=== PATIENT | male | born 1965 | race Caucasian/White ===

== ENCOUNTER 2019-03-10 21:04 | Emergency (ER) | payer BC, OTHER ==
[~2019-03-10] VITALS: Ht 188 cm; Wt 117.9 kg
[2019-03-10] MEDS ORDERED: PRINIVIL10 MG PO (21:44)
[2019-03-10] MEDS ORDERED: MELATONIN10 M3 PO (21:45)
[2019-03-10] MEDS ORDERED: NEXIUM20 MG PO (21:46)
[2019-03-10] MEDS ORDERED: ACETAMINOPHN-12.5 ML PO (21:48)
[2019-03-10] MEDS ORDERED: ASA81BEC PO (21:48)
[2019-03-10] MEDS ORDERED: METFORMIN HCL500 M3 PO (21:49)
[2019-03-10] MEDS ORDERED: SYNTHROID50 MCG PO (21:50)
[2019-03-10] MEDS ORDERED: ZOCOR 20 MG TAB20 M1 PO (21:50)
[2019-03-10 21:51] LABS: ABSOLUTE NEUTROPHILS 8.1 thou/uL (1.4-8.2); BASOPHILS 1.3 % (0.0-2.0); EOSINOPHILS 2.8 % (0.0-3.0); HEMATOCRIT 36.7 % (42.0-52.0); HEMOGLOBIN 11.9 gm/dL (14.0-18.0); LYMPHOCYTES 15.6 % (24.0-44.0); MCH 27.4 pg (26.0-34.0); MCHC 32.3 g/dL (28.0-37.0); MCV 84.9 fL (80.0-100.0); MONOCYTES 8.7 % (1.0-8.0); PLATELET COUNT 476 thou/uL (150-400); POLYS 71.6 % (36.0-66.0); RBC 4.32 mil/uL (4.50-6.00); RDW 13.2 % (10.5-14.5); WBC 11.3 thou/uL (4.0-11.0)
[2019-03-10] MEDS ORDERED: LANTUS SUBQ ×2 (21:54→21:55)
[2019-03-10] MEDS ORDERED: NOVOLIN R100 UNIT/1 (21:57)
[2019-03-10 22:00] LABS: URINE BILIRUBIN NEGATIVE (Negative); URINE BLOOD NEGATIVE (Negative); URINE CLARITY CLEAR; URINE COLOR YELLOW; URINE GLUCOSE-RANDOM* 2+ (Negative); URINE KETONES NEGATIVE (Negative); URINE LEUKOCYTES NEGATIVE (Negative); URINE NITRITE NEGATIVE (Negative); URINE PROTEIN (DIPSTICK) NEGATIVE (Negative); URINE UROBILINOGEN 0.2 E.U./dl (0.2-1.0)
[2019-03-10 22:01] LABS: CALCIUM 8.7 mg/dL (8.5-10.1); CREATININE 1.2 mg/dL (0.7-1.3); POTASSIUM 4.8 mmol/L (3.5-5.1)
[2019-03-10 22:05] LABS: ALBUMIN 2.9 g/dL (3.4-5.0); DIRECT BILIRUBIN 0.1 mg/dL (<0.1-0.3); TOTAL BILIRUBIN 0.3 mg/dL (<0.1-1.0); TOTAL PROTEIN 7.8 g/dL (6.4-8.2)
[2019-03-10 22:08] LABS: URINE REDUCING SUBSTANCE 1 %
[2019-03-11] VITALS: BP 175/102
== END 2019-03-11 00:17 | disposition short-term general hospital (02) ==
LOC: ER 21:04
PROVIDERS: Nurse Practitioner
DX: L03.115 Cellulitis of right lower limb (principal); L02.611 Cutaneous abscess of right foot; E11.9 Type 2 diabetes mellitus without complications; Z79.4 Long term (current) use of insulin